=== PATIENT | female | born 1995 | race Caucasian/White ===

== ENCOUNTER 2020-07-01 02:39 | Emergency (ER) | payer OTHER ==
[~2020-07-01] VITALS: Ht 170.2 cm; Wt 57.7 kg
[2020-07-01] MEDS ORDERED: MAGNESIUM/ALUMINUM HYDROXIDE/SIMETHICONE 30ML UDC PO STA (03:00)
[2020-07-01] MEDS ORDERED: KETOROLAC 60MG/2ML VIAL IM STA (03:00)
[2020-07-01] MEDS ORDERED: DICYCLOMINE 10 MG/5 ML ORAL SYR PO STA (03:00)
[2020-07-01] MEDS ORDERED: VISCOUS LIDOCAINE 2% 15 ML UDC PO STA (03:00)
[2020-07-01] MEDS ORDERED: ONDANSETRON 4MG ODT PO STA (03:00)
[2020-07-01 03:09] LABS: CLARITY URINE CLEAR (CLEAR); COLOR URINE YELLOW (YELLOW); KETONES URINE TRACE (NEGATIVE); LEUKOCYTE ESTERASE URINE TRACE (NEGATIVE); NITRITE URINE NEGATIVE (NEGATIVE); OCCULT BLOOD URINE 1+ (NEGATIVE); PROTEIN URINE NEGATIVE (NEGATIVE); SPECIFIC GRAVITY URINE 1.024 (1.005-1.030)
[2020-07-01 03:19] LABS: *AMPHETAMINES SCREEN URINE NEGATIVE (NEGATIVE); *BARBITURATES SCREEN URINE NEGATIVE (NEGATIVE); *BENZODIAZEPINES SCREEN URINE NEGATIVE (NEGATIVE); *COCAINE SCREEN URINE NEGATIVE (NEGATIVE); CANNABINOID URINE SCREEN NEGATIVE (NEGATIVE); METHADONE URINE SCREEN NEGATIVE (NEGATIVE); OPIATES URINE SCREEN NEGATIVE (NEGATIVE)
[2020-07-01 03:22] LABS: PHENCYCLIDINE URINE SCREEN NEGATIVE (NEGATIVE)
[2020-07-01 03:44] LABS: BASOPHILS % 0.4 % (0.0-2.0); EOSINOPHILS % 2.3 % (0.0-5.0); HEMOGLOBIN. 11.3 g/dL (12.0-16.0); LYMPHOCYTES % 24.5 % (20.0-50.0); MEAN CORPUSCULAR HEMOGLOBIN 27.1 pg (28.0-32.0); MEAN CORPUSCULAR VOLUME 83.6 fL (81.0-99.0); MEAN PLATELET VOLUME 7.8 fl (7.4-10.4); MONOCYTES % 4.9 % (2.0-8.0); NEUTROPHILS % 67.9 % (40.0-76.0); PLATELET 274 x1000/uL (130-400); RED BLOOD CELL COUNT 4.19 mill/uL (4.2-5.4); RED CELL DISTRIBUTION WIDTH 13.3 % (11.6-14.6)
[2020-07-01 03:47] LABS: CHLORIDE 103 mEq/L (98-107)
[2020-07-01 03:52] LABS: ETHANOL BLOOD < 10 mg/dL
[2020-07-01 05:07] VITALS: BP 107/66
== END 2020-07-01 05:09 | disposition home or self-care (01) ==
LOC: ER 02:53
DX: K90.0 Celiac disease (principal)
CPT/HCPCS: 36415; 80053; 80305; 80320; 81003; 81025; 83690; 85025; 96372; 99284; J1885; Q0162; G0480